=== PATIENT | female | born 1935 | race Caucasian/White ===

== ENCOUNTER → 2016-12-14 | Outpatient (CLI) | payer MEDICARE, BC ==
[~2016-12-14] MED LIST: ASPIRIN PO; CALCIUM 500 + D1 TAB PO; CALCIUM PLUS D PO; CERTAGEN PO; FISH OIL 1,0001 CAP PO; GABAPENTIN300 MG PO; LIPITOR PO; LISINOPRIL PO; LORTAB 7.51 TAB PO; MACRODANTIN PO; NABUMETONE PO; PANTOPRAZOLE SO40 MG PO; PHENERGAN25 M1 PO; PREMARIN PO; PREMPRO 0.3 MG/1 TAB PO; PREMPRO 0.625/21 TAB PO; PRILOSEC40 MG PO; RED RICE YEAST PO; TYLENOL #3 PO; TYLOX 5/500 CAP1 CAP PO; VITAMIN D400 UNI2 PO
--- NOTE | ~2016-12-14 | US85 ---
[facility] A Service of [facility] RADIOLOGY TEXT RESULTS PATIENT: DANYD LEVY LOCATION: CNIV : 34 UNIT #: [id number] AGE: [address]: Anahi Georges DPM SEX: F ORDER DR: [id number] [facility] [address] [place], [place] [address] [id number] O MR#: [id number] Acc #: [id number] NAME: DANDY LEVY : 1935 SEX: F STUDY DATE/TIME: 12/14/2016 11:12 UNIT: CNIV ROOM: STUDY DESCRIPTION: [facility] or [facility] Attending Physician: Anahi Georges D.P.M. Referring Physician: Anahi Georges D.P.M. Ordering Physician: Anahi Georges D.P.M. Primary Care Physician: Andie Meier M.D. MEDICAL IMAGING REPORT This report is preliminary unless electronic signature is present EXAM Right lower extremity venous Duplex, 12/14/16. HISTORY Right lower extremity pain, right knee pain for 1 month. No known injury. Evaluate for deep vein thrombosis. TECHNIQUE Venous ultrasound examination of the right lower extremity was performed using grayscale, spectral Doppler and color flow Doppler imaging. FINDINGS The examination is negative. There is no evidence of right lower extremity deep venous thrombus from the groin to the lower calf. Visualized greater saphenous vein is also patent. IMPRESSION Negative examination. No evidence of right lower extremity DVT. Dictated by... Yang Peters M.D. THIS IS AN ELECTRONICALLY VERIFIED REPORT Yang Peters M.D. at 12/15/2016 8:27 AM MJOGAN/ellis TD: 12/14/2016 15:47 JOB #: [id number] MEDICAL IMAGING REPORT Page 1 of 1 COPY
== END | disposition home or self-care (01) ==
LOC: CNIV 10:44 → CGUS 10:44
DX: M79.604 Pain in right leg (principal); M79.89 Other specified soft tissue disorders
CPT/HCPCS: 93971